=== PATIENT | male | born 1975 | race Two or more races ===

== ENCOUNTER 2023-10-12 18:38 | Emergency (ER) | payer MEDICAID, OTHER ==
[~2023-10-12] VITALS: Ht 170.2 cm; Wt 74.8 kg
[2023-10-12 20:59] VITALS: BP 129/87; PULSE 74; RESP 18; TEMP 98.8; O2SAT 98
== END 2023-10-12 21:11 | disposition home or self-care (01) ==
LOC: ER 18:38
DX: R07.0 Pain in throat (principal); Z91.013 Allergy to seafood
CPT/HCPCS: 70360